=== PATIENT | male | born 1985 | race Caucasian/White ===

== ENCOUNTER 2024-04-02 22:48 | Emergency (ER) | payer OTHER, SELFPAY ==
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
[2024-04-02 22:55] VITALS: BP 142/79; PULSE 78; RESP 18; TEMP 36.8; O2SAT 97; BMI 45.6
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
== END 2024-04-03 03:50 | disposition home or self-care (01) ==
PROVIDERS: Emergency Provider Emergency Medicine Emergency Medical Services
DX: S09.90XA Unspecified injury of head, initial encounter (principal); S13.9XXA Sprain of joints and ligaments of unspecified parts of neck, initial encounter; S20.211A Contusion of right front wall of thorax, initial encounter; S43.101A Unspecified dislocation of right acromioclavicular joint, initial encounter; V89.2XXA Person injured in unspecified motor-vehicle accident, traffic, initial encounter; Y93.9 Activity, unspecified; Y92.410 Unspecified street and highway as the place of occurrence of the external cause; Y99.9 Unspecified external cause status
CPT/HCPCS: 70450; 71101; 71250; 72125; 73030; 99284